=== PATIENT | male | born 1940 | race Caucasian/White ===

== ENCOUNTER 2025-08-28 17:36 | Inpatient (IN) | payer MEDICARE, OTHER ==
[~2025-08-28] VITALS: Ht 175.3 cm; Wt 60.6 kg
[2025-08-28] MEDS ORDERED: PIPERACI/TAZO 3.375GM/D5W 50ML PB IV ONE (18:20)
[2025-08-28] MEDS: PIPERACILLIN /TAZOBACTAM 3.375 G in IV D5W 50 ML IV ONE (18:30)
[2025-08-28 18:39] LABS: PLATELET COUNT (AUTO) 185 K/uL (150-450); RED BLOOD CELL COUNT(AUTO) 3.68 MIL/uL (4.5-6.0); RED CELL DISTRIBUTION WIDTH 13.5 % (11.5-15.0); WHITE BLOOD COUNT (AUTO) 5.6 K/uL (4.3-11.0)
[2025-08-28 18:43] LABS: ERYTHROCYTE SEDIMENTATION RATE 6 MM/HR (0-20)
[2025-08-28 18:46] LABS: CALCIUM, SERUM 8.6 mg/dL (8.5-10.1); CREATININE 1.1 mg/dL (0.6-1.3); SODIUM SERUM 141.0 mmol/L (136-145); UREA NITROGEN, BLOOD 36.0 mg/dL (7-18)
[2025-08-28] MEDS ORDERED: MULT-213 PO (18:50)
[2025-08-28] MEDS ORDERED: ACET325T53 PO (18:50)
[2025-08-28] MEDS ORDERED: CARB1TAB21 PO (18:50)
[2025-08-28] MEDS ORDERED: FINA5TAB11 PO (18:50)
[2025-08-28] MEDS ORDERED: RIVA1.5C13 PO (18:50)
[2025-08-28] MEDS ORDERED: ACET-73 PO (18:50)
[2025-08-28 18:51] LABS: INR 1.14 (0.91-1.10)
[2025-08-28 18:52] LABS: ASPARTATE AMINOTRANSFERASE 14.0 U/L (15-37); TOTAL PROTEIN, SERUM 6.8 g/dL (6.4-8.2)
[2025-08-28] MEDS ORDERED: Z GUARD REMEDY 4 OZ OINT TP PRN (20:30)
[2025-08-28] MEDS ORDERED: MAGNESIUM HYDROXIDE 30 ML UDC PO PRN (20:30)
[2025-08-28] MEDS ORDERED: ONDANSETRON HCL/PF 4 MG/2 ML VIAL IVP PRN (20:30)
[2025-08-28 21:15] VITALS: BP 139/69; TEMP 97.7; O2SAT 100
[2025-08-29] MEDS: CARBIDOPA/LEVODOPA 25/100 MG 1 UDTAB PO SCH (00:22)
[2025-08-29] MEDS: IV 1/2NS 1000 ML 1,000 ML IV PRN (00:23)
[2025-08-29] MEDS ORDERED: VANCOMYCIN HCL 1.25 GM in IV D5W 250 ML IV ONE ×2 (01:00→02:00)
[2025-08-29] MEDS ORDERED: DOSING PER PHARMACY-VANCOMYCIN IV XX PRN (01:00)
[2025-08-29] MEDS ORDERED: VANCOMYCIN 1 GM /D5W 250 ML PB IV ONE (01:22)
[2025-08-29] MEDS: VANCOMYCIN 1 GM in IV D5W 250ml IV ONE (01:50)
[2025-08-29] MEDS ORDERED: GUAIFENESIN/D-METHORPHAN HB 5 ML UDC PO PRN (02:00)
[2025-08-29] MEDS: PANTOPRAZOLE 40 MG TABLET.DR PO SCH (07:40)
[2025-08-29 07:55] LABS: CALCIUM, SERUM 8.4 mg/dL (8.5-10.1); CREATININE 0.9 mg/dL (0.6-1.3); PHOSPHORUS 3.0 mg/dL (2.5-4.9); SODIUM SERUM 142.0 mmol/L (136-145); UREA NITROGEN, BLOOD 26.0 mg/dL (7-18)
[2025-08-29 07:56] LABS: PLATELET COUNT (AUTO) 167 K/uL (150-450); RED BLOOD CELL COUNT(AUTO) 3.39 MIL/uL (4.5-6.0); RED CELL DISTRIBUTION WIDTH 13.3 % (11.5-15.0); WHITE BLOOD COUNT (AUTO) 8.4 K/uL (4.3-11.0)
[2025-08-29 08:00] VITALS: BP 124/70; TEMP 97.3; O2SAT 100
[2025-08-29] MEDS: RIVASTIGMINE TARTRATE 1.5 MG CAPSULE PO SCH (08:15)
[2025-08-29] MEDS: MULTIVIT W/MINERALS 1 TAB TABLET PO SCH (08:15)
[2025-08-29] MEDS: FINASTERIDE (5 MG) 5 MG TABLET PO SCH (08:15)
[2025-08-29] MEDS: VANCOMYCIN 750 MG in IV D5W 250 ML IV SCH (13:36)
[2025-08-29 16:00] VITALS: BP 132/63; TEMP 97.7; O2SAT 98
[2025-08-29 20:00] VITALS: BP 109/74; TEMP 97.9; O2SAT 98
[2025-08-30 08:00] VITALS: BP 152/71; TEMP 97.5; O2SAT 99
[2025-08-30 08:10] LABS: PLATELET COUNT (AUTO) 176 K/uL (150-450); RED BLOOD CELL COUNT(AUTO) 3.74 MIL/uL (4.5-6.0); RED CELL DISTRIBUTION WIDTH 13.5 % (11.5-15.0); WHITE BLOOD COUNT (AUTO) 4.8 K/uL (4.3-11.0)
[2025-08-30 09:40] LABS: CALCIUM, SERUM 8.7 mg/dL (8.5-10.1); CREATININE 0.8 mg/dL (0.6-1.3); SODIUM SERUM 140.0 mmol/L (136-145); UREA NITROGEN, BLOOD 17.0 mg/dL (7-18)
[2025-08-30 09:59] LABS: PHOSPHORUS 2.8 mg/dL (2.5-4.9)
[2025-08-30 16:00] VITALS: BP 152/83; TEMP 98.4; O2SAT 94
[2025-08-30 20:00] VITALS: BP 150/67; TEMP 97.7; O2SAT 100
[2025-08-31 08:00] VITALS: BP 90/64; TEMP 98.1; O2SAT 99
[2025-08-31 08:17] LABS: CALCIUM, SERUM 8.5 mg/dL (8.5-10.1); CREATININE 0.7 mg/dL (0.6-1.3); SODIUM SERUM 141.0 mmol/L (136-145); UREA NITROGEN, BLOOD 14.0 mg/dL (7-18)
[2025-08-31] MEDS ORDERED: SULF1TAB48 PO (10:04)
[2025-08-31 14:16] VITALS: TEMP 98.1
[2025-08-31] MEDS: ACETAMINOPHEN 325 MG TABLET PO PRN (14:16)
== END 2025-08-31 14:20 | DRG 602 ==
LOC: ER 17:51 → MED 20:35
PROVIDERS: ADMIT Nurse Practitioner Family; ATTEND Internal Medicine
DX: L03.031 Cellulitis of right toe (principal); G93.41 Metabolic encephalopathy; E44.1 Mild protein-calorie malnutrition; F02.80 Dementia in other diseases classified elsewhere, unspecified severity, without behavioral disturbance, psychotic disturbance, mood disturbance, and anxiety; I12.9 Hypertensive chronic kidney disease with stage 1 through stage 4 chronic kidney disease, or unspecified chronic kidney disease; D64.9 Anemia, unspecified; G20.A1 Parkinson's disease without dyskinesia, without mention of fluctuations; N18.9 Chronic kidney disease, unspecified; Z68.1 Body mass index [BMI] 19.9 or less, adult; E86.0 Dehydration; E88.09 Other disorders of plasma-protein metabolism, not elsewhere classified; N40.0 Benign prostatic hyperplasia without lower urinary tract symptoms; Z20.822 Contact with and (suspected) exposure to COVID-19; Z85.038 Personal history of other malignant neoplasm of large intestine; H40.9 Unspecified glaucoma; F41.9 Anxiety disorder, unspecified; K21.9 Gastro-esophageal reflux disease without esophagitis; Z87.440 Personal history of urinary (tract) infections
CPT/HCPCS: 36415; 71045-TC; 73630-TC; 80048-TC; 80053-TC; 80202-TC; 83735-TC; 84100-TC; 85025-TC; 85610-TC; 85652-TC; 86140-TC; 87040-TC; 87081-TC; 92526; 92611; A4223; G0378; J2543; J3373; J3374; J3490; J7060